=== PATIENT | male | born 1995 | race Caucasian/White ===

== ENCOUNTER 2017-09-06 14:41 | Emergency (ER) | payer OTHER ==
[~2017-09-06] VITALS: Ht 180.3 cm; Wt 79.5 kg
[2017-09-06 14:47] VITALS: BP 123/57; PULSE 76; RESP 18; TEMP 97.9; O2SAT 99
--- NOTE | 2017-09-06 14:49 | PD ---
HPI Chief Complaint: Syncope/Near-Syncope Time Seen by Provider: 14:47 Travel History International Travel<30 days: No Contact w/Intl Traveler<30days: No Traveled to known affect area: No History of Present Illness HPI This 22-year-old male is brought from an urgent care center. He gone there before was because he was feeling weak. He has been having a lot of diarrhea yesterday he did not eat very today he was somewhat nauseated. He is generally healthy. He has had 2 episodes of syncope in the past. He has chronic Lyme disease but is on no medications for it right now. While he was at the urgent care center he said he started feeling very weak and thought he was going to pass out. He is a down and he apparently did pass out. There was no trauma. There is no description of seizure type activity. He is feeling a bit better now [facility] Social History Tobacco Use: No Allergies-Medications (Allergen,Severity, Reaction): Coded Allergies: No Known Allergies (Unverified , 09/06/17) Reported Meds & Prescriptions Reported Meds & Active Scripts Active Zofran Odt (Ondansetron Odt) 4 Mg Tab 4 Mg SL Q6HR PRN Review of Systems Except as stated in HPI: all other systems reviewed are Neg General / Constitutional: No: Fever, Chills HENT: No: Headaches Cardiovascular: Positive: Syncope, No: Chest Pain or Discomfort, Palpitations Respiratory: No: Shortness of Breath Gastrointestinal: Positive: Nausea, Diarrhea Genitourinary: No: Frequency, Dysuria Neurologic: Positive: Weakness Hematologic/Lymphatic: No: Easy Bruising Physical Exam Narrative GENERAL: Well-developed male SKIN: Focused skin assessment warm/dry. HEAD: Atraumatic. Normocephalic. EYES: Pupils equal and round. No scleral icterus. No injection or drainage. ENT: No nasal bleeding or discharge. Mucous membranes pink and moist. NECK: Trachea midline. No JVD. CARDIOVASCULAR: Regular rate and rhythm. No murmur appreciated. RESPIRATORY: No accessory muscle use. Clear to auscultation. Breath sounds equal bilaterally. GASTROINTESTINAL: Abdomen soft, non-tender, nondistended. Hepatic and splenic margins not palpable. MUSCULOSKELETAL: No obvious deformities. No clubbing. No cyanosis. No edema. NEUROLOGICAL: Awake and alert. No obvious cranial nerve deficits. Motor grossly within normal limits. Normal speech. PSYCHIATRIC: Appropriate mood and affect; insight and judgment normal. Data Data Last Documented VS Vital Signs Date Time Temp Pulse Resp B/P (MAP) Pulse Ox O2 Delivery O2 Flow Rate FiO2 09/06/17 14:47 97.9 76 18 123/57 (79) 99 Orders Orders Electrocardiogram (09/06/17 14:47) Complete Blood Count With Diff (09/06/17 14:47) Basic Metabolic Panel (Bmp) (09/06/17 14:47) Magnesium (Mg) (09/06/17 14:47) Sodium Chlor 0.9% 1000 Ml Inj (Ns 1000 M (09/06/17 15:00) Sodium Chlor 0.9% 1000 Ml Inj (Ns 1000 M (09/06/17 15:00) Ondansetron Inj (Zofran Inj) (09/06/17 15:00) Potassium Chloride (Kcl) (09/06/17 15:30) Labs Laboratory Tests Test 09/06/17 14:55 White Blood Count 9.8 TH/MM3 Red Blood Count 4.98 MIL/MM3 Hemoglobin 14.3 GM/DL Hematocrit 42.0 % Mean Corpuscular Volume 84.2 FL Mean Corpuscular Hemoglobin 28.7 PG Mean Corpuscular Hemoglobin Concent 34.0 % Red Cell Distribution Width 11.4 % Platelet Count 168 TH/MM3 Mean Platelet Volume 8.9 FL Neutrophils (%) (Auto) 81.8 % Lymphocytes (%) (Auto) 9.8 % Monocytes (%) (Auto) 6.2 % Eosinophils (%) (Auto) 1.6 % Basophils (%) (Auto) 0.6 % Neutrophils # (Auto) 7.9 TH/MM3 Lymphocytes # (Auto) 1.0 TH/MM3 Monocytes # (Auto) 0.6 TH/MM3 Eosinophils # (Auto) 0.2 TH/MM3 Basophils # (Auto) 0.1 TH/MM3 CBC Comment DIFF FINAL Differential Comment Blood Urea Nitrogen 14 MG/DL Creatinine 1.00 MG/DL Random Glucose 103 MG/DL Calcium Level 8.5 MG/DL Magnesium Level 1.6 MG/DL Sodium Level 139 MEQ/L Potassium Level 3.4 MEQ/L Chloride Level 105 MEQ/L Carbon Dioxide Level 28.7 MEQ/L Anion Gap 5 MEQ/L Estimat Glomerular Filtration Rate 92 ML/MIN MDM Medical Decision Making Medical Screen Exam Complete: Yes Emergency Medical Condition: Yes Medical Record Reviewed: Yes Differential Diagnosis Differential includes dysrhythmia, dehydration, vasovagal syncope Narrative Course Symptoms are most consistent with vasovagal syncope. He will be given some fluids as he has been having some diarrhea and undoubtedly has an element of dehydration. His potassium was 3.4 and this will be replenished Diagnosis Primary Impression: Dehydration Additional Impression: Syncope Qualified Codes: R55 - Syncope and collapse Scripts Ondansetron Odt (Zofran Odt) 4 Mg Tab 4 MG SL Q6HR Y for Nausea/Vomiting, #10 TAB 0 Refills Prov: Brian Armijo MD 09/06/17 Disposition: DISCHARGE HOME Condition: Stable Brian Armijo MD Sep 06, 2017 14:49
[2017-09-06] MEDS ORDERED: ONDANSETRON HCL 4 MG/2 ML VIAL IV PUSH ONE (15:00)
[2017-09-06] MEDS ORDERED: SODIUM CHLOR 0.9% 1000 ML INJ 1,000 ML IV ONE ×2 (15:00)
[2017-09-06 15:06] LABS: AUTOMATED NEUTROPHIL # 7.9 TH/MM3 (1.8-7.7); BASOPHIL # 0.1 TH/MM3 (0-0.2); BASOPHIL % 0.6 % (0.0-2.0); EOSINOPHIL # 0.2 TH/MM3 (0-0.4); EOSINOPHIL % 1.6 % (0.0-4.0); HEMOGLOBIN 14.3 GM/DL (13.0-17.0); LYMPH % 9.8 % (9.0-44.0); MEAN CELL VOLUME 84.2 FL (80.0-100.0); MEAN CORPUSCULAR HEMOGLOBIN 28.7 PG (27.0-34.0); MEAN PLATELET VOLUME 8.9 FL (7.0-11.0); MONO % 6.2 % (0.0-8.0); MONOCYTE # 0.6 TH/MM3 (0-0.9); NEUT % 81.8 % (16.0-70.0); PLATELET COUNT 168 TH/MM3 (150-450); RED BLOOD COUNT 4.98 MIL/MM3 (4.50-5.90); RED CELL DISTRIBUTION WIDTH 11.4 % (11.6-17.2); WHITE BLOOD COUNT 9.8 TH/MM3 (4.0-11.0)
[2017-09-06 15:20] LABS: CALCIUM 8.5 MG/DL (8.5-10.1)
[2017-09-06 15:21] LABS: BICARBONATE 28.7 MEQ/L (21.0-32.0); MAGNESIUM 1.6 MG/DL (1.5-2.5)
[2017-09-06] MEDS ORDERED: POTASSIUM CHLORIDE 20 MEQ CONTROLLED RELEASE TAB PO ONE (15:30)
[2017-09-06] MEDS ORDERED: ZOFR4TAB3 SL (15:36)
[2017-09-06 16:10] VITALS: BP 138/75; PULSE 78; RESP 18; O2SAT 99
--- NOTE | 2017-09-07 16:03 | EKG ---
Date Performed: 09/06/2017 Time Performed: 14:54:35 PTAGE: 22 years EKG: Sinus rhythm POSSIBLE RIGHT VENTRICULAR CONDUCTION DELAY NONSPECIFIC T-WAVE ABNORMALITY BORDERLINE ECG NO PREVIOUS TRACING DOCTOR: Herman Hart Interpretating Date/Time 09/07/2017 16:01:23
== END 2017-09-06 16:38 | disposition home or self-care (01) ==
LOC: PHED 14:41
DX: E86.0 Dehydration (principal)
CPT/HCPCS: 80048; 83735; 85025; 93005; 96361; 96374; 99284; J2405; J7030